=== PATIENT | female | born 1975 | race Caucasian/White ===

== ENCOUNTER → 2017-06-08 | Emergency (ER) | payer OTHER ==
[~2017-06-08] MED LIST: KETOROLAC TROMETHAMINE 60 MG/2 ML VIAL IM ONE
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
[2017-06-08 13:46] VITALS: BP 159/109; PULSE 88; TEMP 97.4; BMI 22.6
== END | disposition home or self-care (01) ==
LOC: JER 13:12
PROC: 3E0233Z Introduction of Anti-inflammatory into Muscle, Percutaneous Approach (ICD-10-PCS; principal; 2017-06-08)
DX: S00.83XA Contusion of other part of head, initial encounter (principal); S13.4XXA Sprain of ligaments of cervical spine, initial encounter; V43.52XA Car driver injured in collision with other type car in traffic accident, initial encounter; Y93.89 Activity, other specified; Y92.410 Unspecified street and highway as the place of occurrence of the external cause; F17.210 Nicotine dependence, cigarettes, uncomplicated
CPT/HCPCS: 70450-TC; 70486-TC; 72125-TC; 99282-25

== ENCOUNTER 2021-11-04 18:15 | Emergency (ER) | payer OTHER ==
[2021-11-04 18:46] VITALS: BP 129/83; PULSE 92; TEMP 98.4; BMI 20.6
== END 2021-11-04 20:45 | disposition home or self-care (01) ==
LOC: JERFT 18:15
DX: Z76.0 Encounter for issue of repeat prescription (principal)
CPT/HCPCS: 99281-25

== ENCOUNTER 2025-05-18 18:47 | Emergency (ER) | payer OTHER ==
[2025-05-18 18:54] VITALS: BP 128/88; PULSE 88; RESP 20; TEMP 98.1; BMI 27.8
== END 2025-05-18 19:54 | disposition home or self-care (01) ==
LOC: JERFT 18:47
DX: M54.2 Cervicalgia (principal); G89.29 Other chronic pain; Z76.0 Encounter for issue of repeat prescription
CPT/HCPCS: 99281-25